=== PATIENT | male | born 1950 | race Caucasian/White ===

== ENCOUNTER → 2017-08-14 | Outpatient (CLI) | payer MEDICARE, OTHER ==
[~2017-08-14] MED LIST: CYCL10 PO; FLUO.05TO TOP; HYDR1TAB94 PO; LISI20 PO; METF500 PO; Percocet 5-3251 EACH PO; Triderm30 GM TP; WARF5 PO
[2017-08-14 18:52] LABS: Alanine Aminotransfer (ALT/SGP 46 U/L (12-78); Albumin, Blood 3.7 g/dL (3.4-5.0); Albumin/Globulin Ratio 0.9 (0.8-1.8); Alk Phos 118 U/L (50-136); Anion Gap 9 mmol/L (6-16); Aspartate Aminotrans (AST/SGOT 45 U/L (12-37); Bilirubin, Total 0.6 mg/dL (0.1-1.0); Blood Urea Nitrogen 12 mg/dL (8-24); Bun/Creatinine Ratio 10.2 (12.0-20.0); CO2, Blood 28 mmol/L (21-32); Chloride, Blood 104 mmol/L (98-108); Creatinine, Blood 1.18 mg/dL (0.60-1.20); Globulin, Blood 4.3 g/dL (2.2-4.0); Glomerular Filtration Rate >60 (60-); Glucose, Blood 103 mg/dL (70-99); Potassium, Blood 3.4 mmol/L (3.5-5.5); Sodium, Blood 141 mmol/L (136-145)
== END ==
LOC: LAB 17:47 → LAB SHORT 17:47
PROVIDERS: Nurse Practitioner Adult Health
DX: E87.6 Hypokalemia (principal)
CPT/HCPCS: 80053

== ENCOUNTER 2017-10-16 15:04 | Emergency (ER) | payer MEDICARE, OTHER ==
[~2017-10-16] VITALS: Ht 172.7 cm; Wt 83.2 kg
[2017-10-16] MEDS ORDERED: Prinivil10 MG PO (16:00)
[2017-10-16] MEDS ORDERED: TRIANEX430 GM TOP (16:10)
[2017-10-16] MEDS ORDERED: BENADRYL25 MG PO (16:10)
[2017-10-16] MEDS ORDERED: METPRE4DP PO (16:10)
== END 2017-10-16 17:06 | disposition home or self-care (01) ==
LOC: ER 15:04
DX: L30.9 Dermatitis, unspecified (principal); Z79.84 Long term (current) use of oral hypoglycemic drugs; Z79.899 Other long term (current) drug therapy; E11.9 Type 2 diabetes mellitus without complications
CPT/HCPCS: 96374; 96375; 99283; J1200; J2930

== ENCOUNTER 2018-05-18 09:51 | Emergency (ER) | payer MEDICARE, OTHER ==
[~2018-05-18] VITALS: Ht 180.3 cm; Wt 81.7 kg
[~2018-05-18 09:51] MED LIST changes: +BENADRYL25 MG PO; +METPRE4DP PO; +Prinivil10 MG PO; +TRIANEX430 GM TOP
[2018-05-18] MEDS ORDERED: Percocet 5-3251 EACH PO (10:42)
[2018-05-18] MEDS ORDERED: Ciprodex Otic7.5 ML LEFTEAR (10:42)
== END 2018-05-18 11:07 | disposition home or self-care (01) ==
LOC: ER 09:51
DX: H60.92 Unspecified otitis externa, left ear (principal); E11.9 Type 2 diabetes mellitus without complications; I10 Essential (primary) hypertension; Z96.643 Presence of artificial hip joint, bilateral
CPT/HCPCS: 99282

== ENCOUNTER 2018-05-20 14:49 | Emergency (ER) | payer MEDICARE, OTHER ==
[~2018-05-20] VITALS: Ht 180.3 cm; Wt 83.9 kg
[~2018-05-20 14:49] MED LIST changes: +Ciprodex Otic7.5 ML LEFTEAR
[2018-05-20] MEDS ORDERED: Amoxicillin875 MG PO (15:06)
== END 2018-05-20 15:41 | disposition home or self-care (01) ==
LOC: ER 14:49
DX: H60.92 Unspecified otitis externa, left ear (principal); Z79.899 Other long term (current) drug therapy; E11.9 Type 2 diabetes mellitus without complications; I10 Essential (primary) hypertension
CPT/HCPCS: 99282

== ENCOUNTER 2018-05-22 14:20 | Emergency (ER) | payer MEDICARE, OTHER ==
[~2018-05-22] VITALS: Ht 180.3 cm; Wt 90.7 kg
[~2018-05-22 14:20] MED LIST changes: +Amoxicillin875 MG PO
== END 2018-05-22 14:46 | disposition home or self-care (01) ==
LOC: ER 14:20
DX: T16.1XXA Foreign body in right ear, initial encounter (principal); H60.92 Unspecified otitis externa, left ear; Z79.899 Other long term (current) drug therapy; E11.9 Type 2 diabetes mellitus without complications
CPT/HCPCS: 99282

== ENCOUNTER → 2018-12-24 | Outpatient (CLI) | payer MEDICARE, OTHER | LOC: LAB 17:24 → LAB SHORT 17:24 | DX: L08.9 Local infection of the skin and subcutaneous tissue, unspecified (principal); R21 Rash and other nonspecific skin eruption | CPT/HCPCS: 87070; 87205; 87529; 87798 ==